=== PATIENT | female | born 1975 | race Caucasian/White ===

== ENCOUNTER 2018-12-21 11:23 | Emergency (ER) | payer BC, OTHER ==
[2018-12-21] MEDS ORDERED: SODIUM CHLORIDE 1,000 ML IV STA (11:34)
[2018-12-21] MEDS ORDERED: ONDANSETRON 4 MG/2 ML VIAL IVPUSH ONE (11:34)
[2018-12-21] MEDS ORDERED: KETOROLAC TROMETHAMINE 30 MG/1 ML VIAL IVPUSH ONE (11:34)
[2018-12-21 11:39] VITALS: BMI 39.1
[2018-12-21] MEDS ORDERED: morphine CARPU-JECT 4 MG/1 ML DISP.SYRIN IVPUSH ONE ×2 (11:42→13:32)
[2018-12-21] MEDS ORDERED: KETOROLAC TROMETHAMINE 30 MG/1 ML VIAL ONE (11:42)
[2018-12-21] MEDS ORDERED: ONDANSETRON 4 MG/2 ML VIAL ONE (11:43)
[2018-12-21] MEDS ORDERED: morphine SULFATE 4 MG/ML VIAL ONE ×2 (11:58→13:49)
[2018-12-21 11:59] LABS: BASO % 0.1 % (0-2.0); HEMOGLOBIN 14.8 GM/dl (10.7-15.3); LYMPH % 13.5 % (8-40); MCH 26.1 pg (25.7-33.7); MCHC 32.8 g/dl (32.0-36.0); MEAN CELL VOLUME 79.5 fl (80-96); MEAN PLT VOLUME 9.4 fl (7.5-11.1); MONO % 3.1 % (3.8-10.2); NEUT % 83.3 % (42.8-82.8); PLATELET COUNT 360 K/MM3 (134-434); RBC 5.66 M/mm3 (3.60-5.2); RDW 14.6 % (11.6-15.6); WHITE BLOOD COUNT 13.6 K/mm3 (4.0-10.8)
[2018-12-21 12:02] LABS: EPITHELIAL CELLS FEW /hpf
[2018-12-21 12:07] LABS: ALBUMIN 4.6 g/dl (3.4-5.0); BILIRUBIN,TOTAL 0.7 mg/dl (0.2-1); CALCIUM 9.7 mg/dl (8.5-10); CREATININE 0.9 mg/dl (0.55-1.3); POTASSIUM 4.1 mmol/L (3.5-5.1)
--- NOTE | 2018-12-21 12:15 | PDOC ---
History of Present Illness - General Chief Complaint: Pain, Acute Stated Complaint: flank pain right side Time Seen by Provider: 12/21/18 11:26 History Source: Patient Exam Limitations: No Limitations - History of Present Illness Initial Comments: 12/21/18 12:14 Ms. Liu is a 43 yo F presenting with a complaint of right flank pain Pt has a history of kidney stones and hypertension Pt has had multiple obstructing kidney stones, 3 requiring hospital assessment and 4 she was able to pass at home Pt states her symptoms began last night She noted right flank pain which is severe, rated >10/10, pain intermittent and associated with nausea and vomiting No fevers or chills No diarrhea Pt thought she would be able to pass this stone but she has been unable to do so , the pain has not improved at all No exacerbating factors Pain comes in waves and is intermittently lessened Pt has had symptoms like this in the past. Pt denies/reports dysuria, hematuria. PMH: HTN, Kidney Stone Meds: Metoprolol ALL: Allopurinol Social: Denies drug or tobacco use ROS GENERAL/CONSTITUTIONAL: No: fever, chills, weakness, loss of appetite. HEAD, EYES, EARS, NOSE AND THROAT: No: change in vision, ear pain, discharge, sore throat, throat swelling. CARDIOVASCULAR: No: chest pain, lightheadedness, palpitations, syncope RESPIRATORY: No: cough, shortness of breath, wheezing, hemoptysis, stridor. GASTROINTESTINAL: (+) lower abdominal pain No: nausea, vomiting, diarrhea GENITOURINARY: No: dysuria, hematuria, frequency, urgency, flank pain. MUSCULOSKELETAL: (+) Right flank pain No: midline back pain SKIN: No: rashes or lesions NEUROLOGIC: No: headache, vertigo, paresthesias, weakness PHYSICAL EXAM GENERAL: The patient is in no acute distress. HEAD: Normal with no signs of trauma. EYES: PERRLA, EOMI, sclera anicteric, conjunctiva clear. ENT: Moist mucous membranes. NECK: Normal range of motion, supple. LUNGS: Breath sounds equal, clear to auscultation bilaterally. No wheezes, and no crackles. HEART:Regular rate and rhythm, normal S1 and S2 without murmur, rub or gallop. ABDOMEN: soft, nontender to palpation, non distended, No guarding, no rebound. EXTREMITIES: Normal range of motion, no edema. NEUROLOGICAL: Cranial nerves II through XII grossly intact. Normal speech. No focal neurological deficits. MUSCULOSKELETAL: (+) Right CVA tenderness SKIN: NO Dermatomal rash noted 12/21/18 12:16 12/21/18 12:42 12/21/18 13:09 Past History - Past Medical History Allergies/Adverse Reactions: Allergies Allergy/AdvReac Type Severity Reaction Status Date / Time allopurinol Allergy Intermediate Vomiting Verified 12/21/18 11:30 Home Medications: Ambulatory Orders Ibuprofen [Motrin -] 800 mg PO TID PRN #36 tablet 12/21/18 Losartan Potassium 25 mg PO DAILY 12/21/18 Ondansetron HCl [Zofran] 4 mg PO BID PRN #10 tablet 12/21/18 Oxycodone HCl/Acetaminophen [Percocet 5-325 mg Tablet -] 1 tab PO Q6H PRN #12 tablet MDD 4 12/21/18 Tamsulosin HCl [Flomax] 0.4 mg PO HS #10 capsule 12/21/18 COPD: No HTN: Yes Kidney Stones: Yes - Surgical History Appendectomy: Yes - Suicide/Smoking/Psychosocial Hx Smoking History: Never smoked Hx Alcohol Use: No Drug/Substance Use Hx: No *Physical Exam - Vital Signs Last Vital Signs Temp Pulse Resp BP Pulse Ox 98.7 F 96 H 18 155/104 H 98 12/21/18 11:24 12/21/18 11:24 12/21/18 11:24 12/21/18 11:24 12/21/18 11:24 ED Treatment Course - LABORATORY CBC & Chemistry Diagram: 12/21/18 11:05 12/21/18 11:05 - ADDITIONAL ORDERS Additional order review: Laboratory Results 12/21/18 12/21/18 11:33 11:05 Sodium 134 L Potassium 4.1 Chloride 101 Carbon Dioxide 21 Anion Gap 12 BUN 17.0 Creatinine 0.9 Est GFR (CKD-EPI)AfAm 89.50 Est GFR (CKD-EPI)NonAf 77.22 Random Glucose 142 H Calcium 9.7 Total Bilirubin 0.7 AST 21 ALT 26 Alkaline Phosphatase 66 Total Protein 8.0 Albumin 4.6 Urine Color Yellow Urine Appearance Clear Urine pH 5.5 Urine Protein Trace Urine Glucose (UA) Negative Urine Ketones 1+ H Urine Blood 3+ H Urine Nitrite Negative Urine Bilirubin Negative Urine Urobilinogen 0.2 Ur Leukocyte Esterase Trace H Urine RBC 80-100 Urine WBC 2-5 Ur Transition Epith Cell Few 12/21/18 11:05 RBC 5.66 H MCV 79.5 L MCHC 32.8 RDW 14.6 MPV 9.4 Neutrophils % 83.3 H Lymphocytes % 13.5 Monocytes % 3.1 L Eosinophils % 0.0 Basophils % 0.1 - RADIOLOGY Radiology Studies Ordered: Category Date Time Status SPIRAL- RENAL-STONE CT [CT] Stat CT Scan 12/21/18 11:43 Ordered - Medications Given in the ED: ED Medications Discontinued Medications Generic Name Dose Route Start Last Admin Trade Name Freq PRN Reason Stop Dose Admin Ketorolac Tromethamine 30 mg 12/21/18 11:34 12/21/18 11:49 Toradol Injection - IVPUSH 12/21/18 11:35 30 mg ONCE ONE Administration Morphine Sulfate 4 mg 12/21/18 11:42 12/21/18 12:03 Morphine Injection - IVPUSH 12/21/18 11:43 4 mg ONCE ONE Administration Ondansetron HCl 4 mg 12/21/18 11:34 12/21/18 11:50 Zofran Injection IVPUSH 12/21/18 11:35 4 mg ONCE ONE Administration Medical Decision Making - Medical Decision Making 12/21/18 12:45 Laboratory Tests 12/21/18 12/21/18 12/21/18 11:05 11:05 11:33 WBC 13.6 H Hgb 14.8 Hct 45.0 Plt Count 360 BUN 17.0 Creatinine 0.9 Urine Ketones 1+ H Urine Blood 3+ H Urine Nitrite Negative Ur Leukocyte Esterase Trace H Urine RBC 80-100 Urine WBC 2-5 CT : 7.6 mm UPJ stone, with signs of obstructive uropathy and mild hydronephrosis, edema and ebnlargement of the right kidney with no swapnil-nephric collection 12/21/18 12:43 Call placed to After 2nd dose of morphine, pt pain is controlled 12/21/18 14:[address] De La Cruz If pain controlled, pt can be seen in follow up on WednesdayDEC 23 at 9AM Pt counselled to return to the [facility] ER immediately for FEVERS, CHILLS, VOMITING (INABILITY TO TOLERATE PO), INTRACTABLE PAIN, ANY OTHER CONCERNS OR COMPLAINTS Clinical impression: Obstructive uropathy, initial presentation *DC/Admit/Observation/Transfer Diagnosis at time of Disposition: Kidney stone on right side - Discharge Dispostion Disposition: HOME Condition at time of disposition: Stable Decision to Admit order: No - Prescriptions Prescriptions: Ibuprofen [Motrin -] 800 mg PO TID PRN #36 tablet PRN Reason: Pain Ondansetron HCl [Zofran] 4 mg PO BID PRN #10 tablet PRN Reason: Nausea Oxycodone HCl/Acetaminophen [Percocet 5-325 mg Tablet -] 1 tab PO Q6H PRN #12 tablet MDD 4 PRN Reason: Severe Pain Tamsulosin HCl [Flomax] 0.4 mg PO HS #10 capsule - Referrals Referrals: Luc Limon MD [Primary Care Provider] - Jose Maria De La Cruz MD [Staff Physician] - - Patient Instructions Printed Discharge Instructions: Kidney Stones -- Adult, Extracorporeal Shock Wave Lithotripsy, DI for Kidney Stones Additional Instructions: Ms Liu thank you for coming in to the ER today You have several kidney stones which accounts for your pain Please be sure to follow up with Dr de la cruz (urologist) for definitive management of your kidney stone(s) Please review your CT report Please return to the ER for FEVERS, CHILLS, INTRACTABLE PAIN, VOMITING, ANY OTHER CONCERNS OR COMPLAINTS If you need to return to the ER, please be sure to go to the [facility] ER (as you may need a procedure which is not performed at [facility]) - Post Discharge Activity Forms/Work/School Notes: Back to Work
[2018-12-21 14:58] VITALS: BP 102/6; PULSE 76; TEMP 98.3
== END 2018-12-21 14:54 | disposition home or self-care (01) ==
LOC: FER 11:23 → SUPCPDRO 11:23 → FER 14:54
PROC: 3E0333Z Introduction of Anti-inflammatory into Peripheral Vein, Percutaneous Approach (ICD-10-PCS; principal; 2018-12-21)
PROC: 3E033NZ Introduction of Analgesics, Hypnotics, Sedatives into Peripheral Vein, Percutaneous Approach (ICD-10-PCS; 2018-12-21)
PROC: 3E033GC Introduction of Other Therapeutic Substance into Peripheral Vein, Percutaneous Approach (ICD-10-PCS; 2018-12-21)
PROC: 3E0337Z Introduction of Electrolytic and Water Balance Substance into Peripheral Vein, Percutaneous Approach (ICD-10-PCS; 2018-12-21)
DX: N20.0 Calculus of kidney (principal)
CPT/HCPCS: 36415; 74176-TC; 80053; 81003; 81015; 81025; 85025; 87086; 99283-25; J7030